=== PATIENT | female | born 1945 | race Caucasian/White ===

== ENCOUNTER 2020-04-17 12:46 | Emergency (ER) | payer MEDICARE ==
--- NOTE | 2020-04-17 15:46 | CT ---
CT lumbar spine without contrast: HISTORY: Lower and middle back pain for last week with pain radiating to right side. Injury. COMPARISON: No prior CT exams of the lumbar spine available FINDINGS: There is incomplete imaging of an approximately 4 mm nonobstructing calculus inferior pole left kidne y. Vascular calcifications are seen in the abdominal aorta and iliac arteries. Partial visualization of a few colonic diverticuli seen in the sigmoid colon. Multilevel degenerative changes are seen throughout the lumbar spine with mild right convex curvature of the thoracolumbar spine and vacuum phenomenon at multiple levels. Vertebral body heights are within normal limits. No fracture or subluxation is seen involving the lumbar spine. T11-12: There is a disc osteophyte complex and right-sided facet hypertrophic changes. There is sligh t effacement of the ventral subarachnoid space. The left neural foramen is patent, but there is mild to moderate right-sided neural foraminal narrowing. T12-L1: Mild disc osteophyte complex present. This results in slight flattening of the ventral subara chnoid space. The neural foramina are patent. L1-2: Mild disc osteophyte complex present. There is mild effacement of the ventral aspect of the the kevin sac. Neural foramina are patent. L2-3: Loss of intervertebral disc height with mild endplate degenerative changes. Disc osteophyte com plex is present which is partially calcified. Moderate facet hypertrophic changes are present with ligamentous thickening. Findings result in severe central canal narrowing as well as narrowing of the subarticular zones greater on the left. Mild right and moderate left-sided neural foraminal narrowing is present. L3-4: Disc osteophyte complex and facet hypertrophic changes as well as ligamentous thickening are pr esent. Findings result in severe central canal narrowing as well as severe narrowing of the lateral recesses. Severe left and mild to moderate right-sided neural foraminal narrowing is present. L4-5: Loss of intervertebral disc height. Broad-based disc osteophyte complex is present. There are f acet hypertrophic changes and ligamentous thickening. There is a central disc protrusion which is partially calcified. Findings result in very severe narrowing of the central spinal canal as well as narrowing of the subarticular zones bilaterally. Severe right and moderate left-sided neural foraminal narrowing is present. L5-S1: Minimal disc osteophyte complex. There are facet hypertrophic changes present. Central spinal canal is patent. There is mild to moderate right-sided neural foraminal narrowing primarily related to bony encroachment. The left neural foramen is patent. IMPRESSION: 1. 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 2. No fracture or subluxation involving the lumbar spine. 3. Right convex scoliosis lumbar spine. 4. Nonobstructing left renal calculus.
== END 2020-04-17 16:21 | disposition home or self-care (01) ==
LOC: ERS 12:46
DX: M54.5 Low back pain (principal); B86 Scabies; E11.9 Type 2 diabetes mellitus without complications; E78.5 Hyperlipidemia, unspecified; E78.00 Pure hypercholesterolemia, unspecified; I10 Essential (primary) hypertension; Z79.899 Other long term (current) drug therapy; Z79.84 Long term (current) use of oral hypoglycemic drugs
CPT/HCPCS: 72131

== ENCOUNTER 2020-07-31 09:12 | Emergency (ER) | payer MEDICARE, SELFPAY ==
[2020-07-31 11:18] LABS: #Basophils 0.1 thou/uL (0.0-0.2); #Eosinphils 0.3 thou/uL (0.0-0.7); #Monocytes 0.5 thou/uL (0.11-0.59); #Neutrophils 3.5 thou/uL (1.40-6.50); %Eosinophils 4.2 % (0.0-10.0); %Lymphocytes 40.5 % (21.0-51.0); %Monocytes 6.7 % (0.0-10.0); %Neutrophils 47.6 % (42.0-75.0); Hemoglobin 13.3 g/dL (12.0-16.0); Mean Corpuscular Hemoglobin 29.4 pg (27.0-31.0); Mean Corpuscular Volume 88.8 fL (78.0-98.0); Mean Platelet Volume 6.6 fL (7.4-10.4); Platelet Count 336 thou/uL (130-400); RBC Distribution Width 12.1 % (11.5-14.5); Red Blood Cell (RBC) Count 4.53 mill/uL (4.20-5.40); White Blood Cell (WBC) Count 7.4 thou/uL (4.8-10.8)
[2020-07-31 11:43] LABS: ALT (SGPT) 14 U/L (8-55); AST (SGOT) 15 U/L (5-34); Albumin 4.1 g/dL (3.4-4.8); Alkaline Phosphatase 93 U/L (40-110); Anion Gap 13 mmol/L (10-20); BUN (Urea Nitrogen) 13 mg/dL (9.8-20.1); Bilirubin, Total 0.6 mg/dL (0.2-1.2); Calc. Creatinine Clearance 0 mL/min (70-130); Calcium 9.2 mg/dL (7.8-10.44); Carbon Dioxide 25 mmol/L (23-31); Chloride 98 mmol/L (98-107); Globulin 3.3 g/dL (2.4-3.5); Glucose 251 mg/dL (83-110); Potassium 4.3 mmol/L (3.5-5.1); Protein, Total 7.4 g/dL (5.8-8.1); Sodium 132 mmol/L (136-145)
== END 2020-07-31 12:35 | disposition home or self-care (01) ==
LOC: ERS 09:12
DX: M75.32 Calcific tendinitis of left shoulder (principal); R07.81 Pleurodynia; E11.9 Type 2 diabetes mellitus without complications; I10 Essential (primary) hypertension; E78.00 Pure hypercholesterolemia, unspecified; E78.5 Hyperlipidemia, unspecified; Z79.82 Long term (current) use of aspirin; Z79.84 Long term (current) use of oral hypoglycemic drugs; Z79.899 Other long term (current) drug therapy; W19.XXXA Unspecified fall, initial encounter
CPT/HCPCS: 36415; 71045; 80053; 84484; 85025; 93005

== ENCOUNTER 2021-11-17 22:45 | Observation (INO) | payer MEDICARE, SELFPAY ==
[2021-11-17 23:48] LABS: #Basophils 0.1 thou/uL (0.0-0.2); #Eosinphils 0.1 thou/uL (0.0-0.7); #Monocytes 0.7 thou/uL (0.11-0.59); #Neutrophils 10.2 thou/uL (1.40-6.50); %Basophils 0.5 % (0.0-1.0); %Eosinophils 0.7 % (0.0-10.0); %Lymphocytes 14.9 % (21.0-51.0); %Monocytes 5.7 % (0.0-10.0); %Neutrophils 78.2 % (42.0-75.0); Hemoglobin 12.9 g/dL (12.0-16.0); Mean Corpuscular HGB CONC 32.7 g/dL (32.0-36.0); Mean Corpuscular Volume 91.8 fL (78.0-98.0); Mean Platelet Volume 6.4 fL (7.4-10.4); Platelet Count 302 thou/uL (130-400); RBC Distribution Width 13.2 % (11.5-14.5); Red Blood Cell (RBC) Count 4.28 mill/uL (4.20-5.40); White Blood Cell (WBC) Count 13.1 thou/uL (4.8-10.8)
[2021-11-18 00:10] LABS: ALT (SGPT) 11 U/L (8-55); AST (SGOT) 19 U/L (5-34); Albumin 4.3 g/dL (3.4-4.8); Alkaline Phosphatase 53 U/L (40-110); Anion Gap 16 mmol/L (10-20); BUN (Urea Nitrogen) 18 mg/dL (9.8-20.1); Bilirubin, Total 0.5 mg/dL (0.2-1.2); Calc. Creatinine Clearance 0 mL/min (70-130); Carbon Dioxide 25 mmol/L (23-31); Chloride 103 mmol/L (98-107); Estimated GFR 77; Globulin 2.9 g/dL (2.4-3.5); Lipase 44 U/L (8-78); Potassium 3.4 mmol/L (3.5-5.1); Protein, Total 7.2 g/dL (5.8-8.1); Sodium 141 mmol/L (136-145)
[2021-11-18 00:17] LABS: Glucose 45 mg/dL (83-110)
[2021-11-18] MEDS ORDERED: Octreotide Acetate 500 MCG/ML VIAL ONE (00:25)
[2021-11-18 01:52] LABS: Bacteria/HPF None Seen HPF (None Seen); Bilirubin Negative (Negative); Blood, Urine Negative (Negative); Clarity Clear (Clear); Glucose, Urine (Dipstick) Normal (Negative); Ketone, Urine Negative (Negative); Leukocyte Negative Leu/uL (Negative); Mucous/LPF 4+ LPF (<2+); Nitrite Negative (Negative); Protein, Urine (Dipstick) 100 mg/dL (Neg-Trace); RBC/HPF 0-3 HPF (0-3); Specific Gravity, Urine 1.029 (1.002-1.036); Squamous Epithelial 0-3 HPF (0-3); Urobilinogen Normal mg/dL (Less than 2); pH, Urine 5.5 (5.0-9.0)
[2021-11-18] MEDS ORDERED: Dextrose 50% Abboject 50 ML SYRINGE SLOW IVP PRN (03:30)
[2021-11-18] MEDS ORDERED: Dextrose 5% in Water 1,000 ML IV PRN (03:30)
[2021-11-18] MEDS ORDERED: Potassium Chloride 20 MEQ TAB PO SCH (03:45)
[2021-11-18 05:45] VITALS: BMI 32.5
[2021-11-18] MEDS ORDERED: Ondansetron ODT 4 MG TAB PO PRN (08:29)
[2021-11-18] MEDS ORDERED: Acetaminophen 325 MG TAB PO PRN (08:29)
[2021-11-18 09:46] LABS: Anion Gap 16 mmol/L (10-20); BUN (Urea Nitrogen) 14 mg/dL (9.8-20.1); Calc. Creatinine Clearance 75 mL/min (70-130); Calcium 9.4 mg/dL (7.8-10.44); Carbon Dioxide 25 mmol/L (23-31); Chloride 100 mmol/L (98-107); Estimated GFR 77; Glucose 219 mg/dL (83-110); Potassium 4.6 mmol/L (3.5-5.1); Sodium 136 mmol/L (136-145)
[2021-11-18] MEDS: Lisinopril 20 MG TAB PO SCH (10:04)
[2021-11-18] MEDS: Aspirin 81 mg Enteric Coated Tablet PO SCH (10:04)
[2021-11-18] MEDS: Calcium Carbonate 600 MG TAB PO SCH ×2 (10:04→19:49)
[2021-11-18] MEDS: Atorvastatin Calcium 20 MG TAB PO SCH (10:04)
[2021-11-18 10:09] LABS: #Eosinphils 0.1 thou/uL (0.0-0.7); #Lymphocytes 2.3 thou/uL (1.20-3.40); #Monocytes 0.5 thou/uL (0.11-0.59); %Basophils 0.5 % (0.0-1.0); %Eosinophils 1.3 % (0.0-10.0); %Lymphocytes 33.5 % (21.0-51.0); %Neutrophils 57.8 % (42.0-75.0); Hemoglobin 12.2 g/dL (12.0-16.0); Mean Corpuscular HGB CONC 32.9 g/dL (32.0-36.0); Mean Corpuscular Hemoglobin 30.3 pg (27.0-31.0); Mean Corpuscular Volume 92.1 fL (78.0-98.0); Mean Platelet Volume 6.8 fL (7.4-10.4); Platelet Count 305 thou/uL (130-400); RBC Distribution Width 13.2 % (11.5-14.5); Red Blood Cell (RBC) Count 4.04 mill/uL (4.20-5.40)
[2021-11-19 06:52] LABS: #Eosinphils 0.2 thou/uL (0.0-0.7); #Lymphocytes 2.8 thou/uL (1.20-3.40); #Monocytes 0.6 thou/uL (0.11-0.59); #Neutrophils 3.9 thou/uL (1.40-6.50); %Basophils 0.5 % (0.0-1.0); %Eosinophils 2.4 % (0.0-10.0); %Lymphocytes 36.9 % (21.0-51.0); %Monocytes 8.4 % (0.0-10.0); %Neutrophils 51.8 % (42.0-75.0); Hemoglobin 12.6 g/dL (12.0-16.0); Mean Corpuscular HGB CONC 32.7 g/dL (32.0-36.0); Mean Corpuscular Hemoglobin 29.8 pg (27.0-31.0); Mean Platelet Volume 6.7 fL (7.4-10.4); Platelet Count 308 thou/uL (130-400); RBC Distribution Width 13.2 % (11.5-14.5); Red Blood Cell (RBC) Count 4.24 mill/uL (4.20-5.40); White Blood Cell (WBC) Count 7.5 thou/uL (4.8-10.8)
[2021-11-19 07:22] LABS: Anion Gap 18 mmol/L (10-20); BUN (Urea Nitrogen) 13 mg/dL (9.8-20.1); Calc. Creatinine Clearance 82 mL/min (70-130); Calcium 9.6 mg/dL (7.8-10.44); Carbon Dioxide 23 mmol/L (23-31); Chloride 102 mmol/L (98-107); Estimated GFR 86; Glucose 123 mg/dL (83-110); Potassium 3.9 mmol/L (3.5-5.1); Sodium 139 mmol/L (136-145)
[2021-11-19] MEDS: Lisinopril 20 MG TAB PO SCH (08:21)
[2021-11-19] MEDS: Aspirin 81 mg Enteric Coated Tablet PO SCH (08:21)
[2021-11-19] MEDS: Calcium Carbonate 600 MG TAB PO SCH (08:22)
[2021-11-19] MEDS: Atorvastatin Calcium 20 MG TAB PO SCH (08:22)
[2021-11-19 14:21] VITALS: BP 116/75; TEMP 97.9
== END 2021-11-19 14:30 | disposition home or self-care (01) ==
LOC: ERS 22:45 → T4-A 11-18 04:29
PROVIDERS: ADMIT Internal Medicine; ATTEND Internal Medicine
DX: E11.649 Type 2 diabetes mellitus with hypoglycemia without coma (principal); G93.41 Metabolic encephalopathy; I12.9 Hypertensive chronic kidney disease with stage 1 through stage 4 chronic kidney disease, or unspecified chronic kidney disease; E11.22 Type 2 diabetes mellitus with diabetic chronic kidney disease; N18.2 Chronic kidney disease, stage 2 (mild); E78.5 Hyperlipidemia, unspecified; E87.6 Hypokalemia; E86.0 Dehydration; Z79.82 Long term (current) use of aspirin; Z79.84 Long term (current) use of oral hypoglycemic drugs; Z79.899 Other long term (current) drug therapy; Z20.822 Contact with and (suspected) exposure to COVID-19
CPT/HCPCS: 71045; 73030; 80048 ×2; 80053; 82962 ×2; 83036; 83690; 84484; 85025 ×3; 93005; G0378 ×3; U0003; U0005; 36415; 36416; 81003; 81015; J2354